=== PATIENT | female | born 1955 | race American Indian/Alaskan Native ===

== ENCOUNTER 2021-07-17 09:55 | Outpatient (CLI) | payer MEDICARE ==
--- NOTE | 2021-07-17 10:35 | XRay Report ---
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 A late ral view of the left knee was not performed. Severe patellofemoral degenerative change within the rig ht knee with small joint effusion. Additional lateral view of the left knee recommended. Signer Name: Finn Winn MD Signed: 07/17/2021 10:31 AM Workstation Name: [id number]
== END 2021-07-17 09:56 | disposition home or self-care (01) ==
LOC: XRAY 09:55
PROVIDERS: ATTEND Orthopaedic Surgery
DX: M17.0 Bilateral primary osteoarthritis of knee (principal); M25.461 Effusion, right knee